=== PATIENT | male | born 1945 | race Caucasian/White ===

== ENCOUNTER 2016-10-30 03:35 | Emergency (ER) | payer OTHER ==
[2016-10-30 03:41] VITALS: RESP 18; TEMP 97.5
--- NOTE | 2016-10-30 03:47 | EDPHY ---
H & P Stated Complaint: MID BACK PAIN THINKS INFECTION HPI/ROS: HPI CHIEF COMPLAINT: Back pain HISTORY OF PRESENT ILLNESS: This patient is 71-year-old male, significant past medical history for hyperlipidemia, lupus, staph aureus bacteremia and subsequently C7-T1 diskitis and osteomyelitis, T7, T8 diskitis back in 2014, I did review his ER record from 06/01/2014 as well as his H and P and discharge summary involving that Staph aureus infection, he presents emergency room at 3: 45 a.m. in the morning for lower thoracic upper lumbar back pain x1 week. He has not had any fever, chills, rigors. Does states the pain is worse with me movement especially truncal turns, and going to sit up. He denies any specific injury but he does go to the gym however does not remember injuring himself. Tells me decided come the emergency room this evening after week of back pain he is not taking anything for it. Describes a sharp stabbing low thoracic upper lumbar does not radiate anywhere. He denies saddle anesthesia bowel bladder incontinence denies fever, denies exquisite pain. Denies numbness or tingling or focal weakness. States the pain is localized to that 1 area. He decided come the emergency room because he became concerned started thinking that maybe he has another back infection. Does recall that last time he had a fever chills and severe worsening back pain then at this time. The symptoms are somewhat different. Of note also this patient denies abdominal pain, upper back pain chest pain or shortness of breath. Past Medical History: Hyperlipidemia, lupus, on methotrexate, staph aureus bacteremia, diskitis and osteomyelitis Past Surgical History: No recent surgical history Social History: Denies daily use of drugs alcohol tobacco products. Family History: Noncontributory ROS REVIEW OF SYSTEMS: A comprehensive 10 point review of systems is otherwise negative aside from elements mentioned in the history of present illness. Exam Constitutional appears well nontoxic triage nursing summary reviewed, vital signs reviewed, awake/alert. Eyes normal conjunctivae and sclera, EOMI, PERRLA. HENT normal inspection, atraumatic, moist mucus membranes, no epistaxis, neck supple/ no meningismus, no raccoon eyes. Respiratory clear to auscultation bilaterally, normal breath sounds, no respiratory distress, no wheezing. Cardiovascular rate normal, regular rhythm, no murmur, no edema, distal pulses normal. Gastrointestinal soft, non-tender, no rebound, no guarding, normal bowel sounds, no distension, no pulsatile mass. Genitourinary no CVA tenderness. Musculoskeletal back exam: Specifically no midline thoracic or lumbar back pain , no redness, no warmth present, does have mild pain when he goes to sit up in do truncal movements, no signs of cauda equina on exam, no midline vertebral tenderness, full range of motion, no calf swelling, no tenderness of extremities , no meningismus, good pulses, neurovascularly intact. Skin pink, warm, & dry, no rash, skin atraumatic. Neurologic awake, alert and oriented x 3, AAOx3, moves all 4 extremities equally, motor intact, sensory intact, CN II-XII intact, normal cerebellar, normal vision, normal speech. Psychiatric normal mood/affect. Heme/Lymph/Immune no lymphadenopathy. Differential Diagnosis: Includes but is not limited to in a particular order compression fracture, muscle spasm, muscle strain, disc herniation, annular tear , nerve root compression, diskitis, osteomyelitis, back infection Medical Decision Making: Plan for this patient as he appears well nontoxic he has not had any fever chills or rigors, he is afebrile upon arrival to the emergency room, there is no external source of infection on exam, plan will be for check basic blood work including CBC, ESR and CRP x-ray thoracic spine to help visualize lower thoracic spine. He has no focal neurological deficits on exam. We discussed about evaluation for possible infection he has agreed full blood work. I explained that blood work is normal is x-ray does not show anything acute I think it is reasonable to allowed to go home however if develops fever, chills rigors worsening back pain needs return emergency room for possible MR imaging. It is noted last time he needed MR imaging he had to be intubated for his MRIs. Re-evaluation: 0438: Patient resting comfortably no acute distress. Vital signs are stable. Afebrile. Blood work has been reviewed. No white blood cell count, ESR and CRP are normal. I do feel comfortable allowing to go home. However he does understand if develops fever, worsening back pain rigors or chills he needs return emergency room. I did give him strict return precautions. I explained without an MRI with without contrast of his back I cannot 100% definitively rule out infection osteomyelitis diskitis however I think it is unlikely given he has no fever, no chills no for rigors no severe back pain and normal laboratory studies. But he understands develops any this to return emergency room. Source: Patient - Personal History Current Tetanus/Diphtheria Vaccine: Yes Current Tetanus Diphtheria and Acellular Pertussis (TDAP): Yes - Medical/Surgical History Hx Asthma: No Hx Chronic Respiratory Disease: No Hx Diabetes: No Hx Cardiac Disease: No Hx Renal Disease: No Hx Cirrhosis: No Hx Alcoholism: No Hx HIV/AIDS: No Hx Splenectomy or Spleen Trauma: No Other PMH: POLIO, PROSTATE CA W/ SURGERY, ANKLE FX,LUPUS; bacteremia - Social History Smoking Status: Former smoker Constitutional: Initial Vital Signs Temperature (C) 36.4 C 10/30/16 03:38 Heart Rate 66 10/30/16 03:38 Respiratory Rate 18 10/30/16 03:38 Blood Pressure 137/84 H 10/30/16 03:38 O2 Sat (%) 96 10/30/16 03:38 O2 Delivery Mode Room Air Allergies/Adverse Reactions: No Known Allergies Allergy (Unverified 10/30/16 03:40) Home Medications: Medication Instructions Recorded Cholecalciferol Vit D3 [Vitamin D3 1,000 units PO DAILY 04/07/13 (*)] Folic Acid [Folic Acid 1 MG (*)] 1 mg PO DAILY 04/07/13 Hydrochlorothiazide [HCTZ (*)] 25 mg PO DAILY 04/07/13 Methotrexate Sodium [Methotrexate] 15 mg PO [place] 04/07/13 Multivitamins [Multivitamin (*)] 1 tab PO DAILY 04/07/13 Quinapril HCl [Accupril 40 MG] 40 mg PO DAILY 04/07/13 Cyclobenzaprine [Flexeril 10 MG 10 mg PO TID PRN #30 tab 06/08/14 (*)] Cyanocobalamin [Vitamin B12 (*)] 1,000 mcg PO DAILY 06/09/14 Aspirin [Aspirin 81mg (*)] 81 mg PO DAILY 06/23/14 Medical Decision Making - Data Points Laboratory Results: Laboratory Results 10/30/16 04:01 10/30/16 04:01 10/30/16 10/30/16 04:01 04:01 WBC 4.85 10^3/uL 10^3/uL (3.80-9.50) RBC 4.70 10^6/uL 10^6/uL (4.40-6.38) Hgb 15.9 g/dL g/dL (13.7-17.5) Hct 42.6 % % (40.0-51.0) MCV 90.6 fL fL (81.5-99.8) MCH 33.8 pg pg (27.9-34.1) MCHC 37.3 g/dL H g/dL (32.4-36.7) RDW 14.4 % % (11.5-15.2) Plt Count 89 10^3/uL L 10^3/uL (150-400) MPV 10.4 fL fL (8.7-11.7) Neut % (Auto) 63.9 % % (39.3-74.2) Lymph % (Auto) 20.0 % % (15.0-45.0) [place] % (Auto) 10.1 % % (4.5-13.0) Eos % (Auto) 5.2 % % (0.6-7.6) Baso % (Auto) 0.6 % % (0.3-1.7) Nucleat RBC Rel Count 0.0 % % (0.0-0.2) Absolute Neuts (auto) 3.10 10^3/uL 10^3/uL (1.70-6.50) Absolute Lymphs (auto) 0.97 10^3/uL L 10^3/uL (1.00-3.00) Absolute Monos (auto) 0.49 10^3/uL 10^3/uL (0.30-0.80) Absolute Eos (auto) 0.25 10^3/uL 10^3/uL (0.03-0.40) Absolute Basos (auto) 0.03 10^3/uL 10^3/uL (0.02-0.10) Absolute Nucleated RBC 0.00 10^3/uL 10^3/uL (0-0.01) Immature Gran % 0.2 % % (0.0-1.1) Immature Gran # 0.01 10^3/uL 10^3/uL (0.00-0.10) ESR 2 MM/HR MM/HR (0-20) Sodium 143 mEq/L mEq/L (134-144) Potassium 3.6 mEq/L mEq/L (3.5-5.2) Chloride 111 mEq/L H mEq/L (97-110) Carbon Dioxide 21 mEq/l L mEq/l (22-31) Anion Gap 11 mEq/L mEq/L (8-16) BUN 21 mg/dL mg/dL (7-23) Creatinine 1.1 mg/dL mg/dL (0.7-1.3) Estimated GFR > 60 Glucose 96 mg/dL mg/dL (70-100) Calcium 9.4 mg/dL mg/dL (8.5-10.4) C-Reactive Protein < 5.0 mg/L mg/L (<10.0) Departure - Departure Disposition: Home, Routine, Self-Care Clinical Impression: Back pain Qualifiers: Back pain location: low back pain Chronicity: acute Back pain laterality: unspecified Sciatica presence: without sciatica Qualified Code(s): M54.5 - Low back pain Condition: Good Instructions: Acute Low Back Pain (ED) Additional Instructions: 1. If you develop worsening back pain, fever, chills, shaking or you do not feel well return to the emergency room. Referrals: Edy Broussard MD [Primary Care Provider] - As per Instructions
[2016-10-30 04:09] LABS: % IMMATURE GRANULYOCYTES 0.2 % (0.0-1.1); ABSOLUTE IMMATURE GRANULOCYTES 0.01 10^3/uL (0.00-0.10); ADD DIFF? NO; ADD MORPH? NO; ADD SCAN? NO; ATYPICAL LYMPHOCYTE FLAG 0 (0-99); FRAGMENT RBC FLAG 0 (0-99); HEMATOCRIT 42.6 % (40.0-51.0); HEMOGLOBIN 15.9 g/dL (13.7-17.5); LEFT SHIFT FLG 0 (0-99); LIPEMIA HEMOLYSIS FLAG 90 (0-99); MEAN CELL HEMOGLOBIN 33.8 pg (27.9-34.1); MEAN CELL HEMOGLOBIN CONCENTR. 37.3 g/dL (32.4-36.7); MEAN CELL VOLUME 90.6 fL (81.5-99.8); MEAN PLATELET VOLUME 10.4 fL (8.7-11.7); PLATELET CLUMPS FLAG 0 (0-99); PLATELET COUNT 89 10^3/uL (150-400); RED CELL DISTRIBUTION WIDTH 14.4 % (11.5-15.2)
[2016-10-30 04:27] LABS: ANION GAP 11 mEq/L (8-16); C-REACTIVE PROTEIN < 5.0 mg/L (<10.0); CALCIUM 9.4 mg/dL (8.5-10.4); CARBON DIOXIDE 21 mEq/l (22-31); CHLORIDE 111 mEq/L (97-110); CREATININE 1.1 mg/dL (0.7-1.3); GLOMERULAR FILTRATION RATE > 60; GLUCOSE 96 mg/dL (70-100); POTASSIUM 3.6 mEq/L (3.5-5.2); SODIUM 143 mEq/L (134-144)
[2016-10-30 04:32] LABS: SEDIMENTATION RATE 2 MM/HR (0-20)
[2016-10-30 04:47] VITALS: BP 130/84; PULSE 63; O2SAT 94
== END 2016-10-30 04:47 | disposition home or self-care (01) ==
DX: M54.5 Low back pain (principal); Z79.82 Long term (current) use of aspirin; Z85.46 Personal history of malignant neoplasm of prostate; Z87.891 Personal history of nicotine dependence

== ENCOUNTER 2018-09-23 07:48 | Day surgery (SDC) | payer OTHER | END 2018-09-23 16:05 | disposition home or self-care (01) | LOC: FSGY 07:48 ==